=== PATIENT | female | born 1970 | race Caucasian/White ===

== ENCOUNTER → 2020-07-11 09:17 | Outpatient (CLI) | payer OTHER, SELFPAY ==
--- NOTE | ~2020-07-11 | DEXA_ITS ---
Bone Density Report Name: Lovely Longoria Age: 50 Sex: Female Ethnicity: White Date of : 1970 Indication: postmenopausal; screening for osteoporosis; height loss; history of glucocorticoids; prior fracture; hysterectomy; Referring Provider: XIAO ANGLIN Study: Bone densitometry was performed. Exam Date: July 11, 2020 Accession number: [id number] Bone Density: Region BMD T-score Z-score Classification AP Spine (L1-L4) 0.966 -0.7 0.1 Normal Femoral Neck (Left) 0.740 -1.0 -0.1 Normal Total Hip (Left) 0.940 0.0 0.5 Normal Femoral Neck (Right) 0.669 -1.6 -0.7 Osteopenia Total Hip (Right) 0.859 -0.7 -0.1 Normal Total Hip Mean 0.900 -0.4 0.2 Normal World Health Organization criteria for BMD impression classify patients as: Normal (T-score at or above -1.0), Osteopenia (T-score between -1.0 and -2.5), or Osteoporosis (T-score at or below -2.5). 10-year Fracture Risk(1): Major Osteoporotic Fracture 15% Hip Fracture 1.6% Reported Risk Factors: [place] (), Neck BMD=0.669, BMI=37.3, previous fracture, glucocorticoids (1) FRAX(R) Version 3.08. Fracture probability calculated for an untreated patient. Fracture probability may be lower if the patient has received treatment. Clinical Information Provided by Patient: Has had a low trauma fracture Has taken Glucocorticoids Has the following medical conditions: Hysterectomy, stage 3 kidney disease, chemo in the past due to kidney disease Patient maximum height was 67 Menopause Age: 25 Drinks caffeinated beverages Onset of menses at age 9 Number of children 0 Impression: The patient has low bone mass, based on the Right Femoral Neck T-score. The patient has an estimated ten-year risk of hip fracture of 1.6% and an estimated ten-year risk of major fracture of 15%, based on the WHO FRAX algorithm. The patient has risk factors, including: previous fracture, history of glucocorticoid therapy. Discussion: BONE DENSITY IS LOW AT ONE OR MORE SKELETAL SITES. This patient's lowest T-score is low at one or more skeletal sites. It meets the World Health Organization's (WHO) criteria for ?low bone mass? (T-score between -1.0 and -2.5). The patient's 10-year risk of fracture as calculated by FRAX is less than the threshold where pharmacological therapy is recommended by the National Osteoporosis Foundation (NOF). However, all treatment decisions require clinical judgment and consideration of individual patient factors, including patient preferences, comorbidities, previous drug use, risk factors not captured in the FRAX model (e.g., frailty, falls, vitamin D deficiency, increased bone turnover, interval significant decline in bone density) and possible under or overestimation of fracture risk by FRAX. The patient should follow a healthful lifestyle (good nu
== END ==
DX: M85.88 Other specified disorders of bone density and structure, other site (principal)
CPT/HCPCS: 77080

== ENCOUNTER 2020-08-27 16:08 | Emergency (ER) | payer OTHER, SELFPAY ==
--- NOTE | 2020-08-27 16:13 | ED.GENADULT ---
HPI - General Adult General Chief complaint: Skin/Abscess/Foreign Body Stated complaint: rash Time Seen by Provider: 08/27/20 16:15 Source: patient Mode of arrival: ambulatory Limitations: no limitations History of Present Illness HPI narrative: 50-year-old female patient presents to the [facility] with complaints of hives that started this morning. 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 Patient states that while she was out walking her dog she suddenly had a lot of itching to her bilateral lower extremities as well as her bilateral breasts. Patient states when she got back home she did take 50 mg of Benadryl and went to bed. Patient states about half an hour after she took the Benadryl she did notice some chest tightness but ignored it with went ahead and went to sleep. Patient states that when she woke up from her sleep today she continued to have the chest tightness but only rates it about a 2 out of 10. Patient states that she noticed that the hives to her bilateral breast in her lower extremities were improved but then shortly after waking up started getting hives to bilateral upper extremities with itching. Denies any shortness of breath. Denies any fevers, body aches or chills. Patient does have an autoimmune kidney disorder in which she recently just finished some Bactrim. Patient does also have history of hypertension which she has not yet taken her medicine for. 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 Related Data Home Medications Medication Instructions Recorded Confirmed atenolol 50 mg PO DAILY 08/27/20 08/27/20 hydrochlorothiazide 25 mg PO DAILY 08/27/20 08/27/20 levothyroxine 100 mcg PO DAILY 08/27/20 08/27/20 Allergies Allergy/AdvReac Type Severity Reaction Status Date / Time GISELL Inhibitors Allergy Unknown Verified 08/27/20 16:33 mycophenolate mofetil Allergy Unknown Verified 08/27/20 16:33 Penicillins Allergy Unknown Verified 08/27/20 16:33 Sulfa (Sulfonamide Allergy Unknown Verified 08/27/20 16:33 Antibiotics) chlorthalidone Allergy Unknown Verified 08/27/20 16:33 Review of Systems Review of Systems: Narrative: CONSTITUTIONAL: Denies fever, chills, or sweats. EYES: Denies visual changes, redness, or discharge. ENT: Denies rhinorrhea, congestion, sore throat, or otalgia. CARDIOVASCULAR: Positive midsternal chest tightness, denies palpitations, or edema. RESPIRATORY: Denies cough or dyspnea. GASTROINTESTINAL: Denies abdominal pain, nausea, vomiting, or diarrhea. GENITOURINARY: Denies dysuria or hematuria. SKIN: Positive rash with itching to bilateral lower extremities, bilateral upper extremities, bilateral breast.. MUSCULOSKELETAL: Denies back pain, joint pain, or myalgia. NEUROLOGIC: Denies headache, numbness, or weakness. PSYCHIATRIC: Denies anxiety or depression. [facility] Past Medical History Medical History (Updated 08/27/20 @ 16:53 by KENIA Lopez) Genitourinary disorder Autoimmune IgA nephropathy Hypertension Hypothyroidism Surgical History Surgical History (Updated 08/27/20 @ 16:16 by KENIA Lopez) H/O: hysterectomy Social History Social History Gender identity (if verbalized by the patient): Female Comments At the time of my signature I agree with nursing past medical history, surgical, social, and family history. There is no relevant family history pertinent to the presenting complaint. Exam Narrative: Exam Narrative: GENERAL: Well-appearing, well-nourished, and in no acute distress. HEAD: Normocephalic, atraumatic. EYES: PERRLA and EOMI. ENT: Nares clear, no rhinorrhea or epistaxis. Mucous membranes moist. Posterior pharynx with no erythema, tonsillectomy, exudates or lesions present. NECK: Supple. No lymphadenopathy CHEST: Clear to auscultation. No respirator
[2020-08-27 16:24] VITALS: BP 136/105; PULSE 78; RESP 16; TEMP 36.7; O2SAT 99
--- NOTE | 2020-08-27 16:32 | ECG_ITS ---
Measurements Intervals [place] Rate: 62 P: 36 VT: 158 QRS: -21 QRSD: 94 T: 26 QT: 365 QTc: 373 Interpretive Statements SINUS RHYTHM DELAYED PRECORDIAL R/S TRANSITION VOLTAGE CRITERIA FOR LVH MINIMAL Q WAVES- HIGH LATERAL LEADS BASELINE ARTIFACT- I, II, III, AVR, AVL, AVF BORDERLINE ECG Electronically Signed On 08-27-2020 19:18:03 SPRING TACKER by Davidson Ocampo D.O.
[2020-08-27 16:33] VITALS: BP 136/105; PULSE 78; RESP 16; TEMP 36.7; O2SAT 99
--- NOTE | 2020-08-27 16:35 | PC.NURSE ---
1623 - Pt states she has not taken her daily medications.
== END 2020-08-27 16:45 | disposition short-term general hospital (02) ==
LOC: EXPCOLL 16:18
PROVIDERS: Emergency Provider Nurse Practitioner Family
DX: R07.89 Other chest pain (principal); L50.9 Urticaria, unspecified; N02.8 Recurrent and persistent hematuria with other morphologic changes; I10 Essential (primary) hypertension; E03.9 Hypothyroidism, unspecified
CPT/HCPCS: 93005; 99213; G0463

== ENCOUNTER 2020-08-27 17:00 | Emergency (ER) | payer OTHER, SELFPAY ==
--- NOTE | ~2020-08-27 | XR_ITS ---
EXAMINATION: XR chest 2V DATE: 08/27/2020 17:16 INDICATION: Chest tightness. TECHNIQUE: Frontal and lateral views of the chest were obtained. COMPARISON: None. FINDINGS: The chest demonstrates clear lungs without pneumonia, pleural effusion, or pneumothorax. Th e heart size is normal. IMPRESSION: 1. No acute cardiopulmonary disease. Reviewed, dictated and finalized at location A. L JUDGE
--- NOTE | 2020-08-27 17:02 | ECG_ITS ---
Measurements Intervals [place] Rate: 73 P: 37 IA: 164 QRS: -25 QRSD: 89 T: 36 QT: 366 QTc: 406 Interpretive Statements SINUS RHYTHM WITH SINUS ARRHYTHMIA DELAYED PRECORDIAL R/S TRANSITION VOLTAGE CRITERIA FOR LVH MINIMAL Q WAVES- HIGH LATERAL LEADS BASELINE ARTIFACT- II, III, AVF BORDERLINE ECG Electronically Signed On 08-27-2020 19:17:26 [employer] INSTALLER by Davidson Ocampo D.O.
--- NOTE | 2020-08-27 17:12 | ED.CHESTPAIN ---
HPI - Chest Pain General Chief Complaint: Recheck/Abnormal Lab/Rx Stated Complaint: Abnormal E[facility] from [facility] Time Seen by Provider: 08/27/20 17:12 Source: patient Mode of arrival: ambulatory Limitations: no limitations History of Present Illness HPI narrative: Patient is a 50-year-old female with a history of hypertension, hypothyroidism who presents from a local urgent care for evaluation of chest pain. Patient reportedly has had chest tightness throughout the day today, initially beginning this morning while the patient was at rest. Patient states that she went to walk her dog this morning after being outside, she suddenly noticed urticaria and itching, tingling that began on her lower extremities and then spread to her chest and abdomen. Patient states that she has a history of numerous urticarial reactions in the past, sometimes these are triggered by specific medications, patient denies any current antibiotic therapy. She did states she finished a prescription for Macrobid over 48 hours ago. Patient denies any dysuria or hematuria. No fever or chills. No current chest pain or shortness of breath. Patient states that the pain was really described as a tightness, no radiation to the jaw, shoulder, back or flanks. No associated shortness of breath, nausea or vomiting. Patient denies history of PR. Patient states that she was not walking when the pain began, she was already at home. Patient states her urticaria is mostly resolved aside from a few scattered hives to the left forearm. Patient states she took Benadryl and Claritin which greatly improved to the urticaria. Related Data Home Medications Medication Instructions Recorded Confirmed atenolol 50 mg PO DAILY 08/27/20 08/27/20 hydrochlorothiazide 25 mg PO DAILY 08/27/20 08/27/20 levothyroxine 100 mcg PO DAILY 08/27/20 08/27/20 Allergies Allergy/AdvReac Type Severity Reaction Status Date / Time GISELL Inhibitors Allergy Unknown Swelling Verified 08/27/20 17:32 of Lip/Tongue/Throat mycophenolate mofetil Allergy Unknown Itching Verified 08/27/20 17:32 Penicillins Allergy Unknown Wheezing Verified 08/27/20 17:32 Sulfa (Sulfonamide Allergy Unknown Rash Verified 08/27/20 17:32 Antibiotics) chlorthalidone Allergy Swelling Verified 08/27/20 17:32 of Lip/Tongue/Throat Review of Systems Review of Systems: Narrative: CONSTITUTIONAL: Denies fever, chills, or sweats. EYES: Denies visual changes, redness, or discharge. ENT: Denies rhinorrhea, congestion, sore throat, or otalgia. CARDIOVASCULAR: Denies current chest tightness RESPIRATORY: Denies cough or dyspnea. GASTROINTESTINAL: Denies abdominal pain, nausea, vomiting, or diarrhea. GENITOURINARY: Denies dysuria or hematuria. SKIN: Reports mostly resolved urticarial rash, resolved itching MUSCULOSKELETAL: Denies back pain, joint pain, or myalgia. NEUROLOGIC: Denies headache, numbness, or weakness. [facility] Past Medical History Medical History Genitourinary disorder Autoimmune IgA nephropathy Hypertension Hypothyroidism Surgical History Surgical History (Updated 08/27/20 @ 16:16 by KENIA Lopez) H/O: hysterectomy Social History Social History Gender identity (if verbalized by the patient): Female Exam Narrative: Exam Narrative: GENERAL: Awake, alert, conversant HEAD: Normocephalic, atraumatic. EYES: PERRLA and EOMI. ENT: Nares clear, no rhinorrhea or epistaxis. Mucous membranes moist. NECK: Supple. CHEST: No respiratory distress, breathing even and non labored, no chest wall tenderness HEART: Regular rate, sinus rhythm ABDOMEN:Non distended, non tender EXTREMITIES: Normal range of motion. No edema. No calf tenderness. SKIN: Warm, dry, three urticaria located left forearm, no other urticaria on evaluation NEURO:No focal deficits. Alert and oriented x3 Course Vital
[2020-08-27 17:23] VITALS: BP 160/98; PULSE 72; RESP 16; O2SAT 99
[2020-08-27 17:47] LABS: Basophils Absolute Auto 0.1 K/mm3 (0.0-0.1); Basophils Percent Auto 0.8 % (0.2-1.2); Eosinophils Absolute Auto 0.3 K/mm3 (0-0.3); Eosinophils Percent Auto 2.6 % (0-4.4); Hematocrit 41.9 % (37.0-47.0); Hemoglobin 13.1 g/dL (12.0-15.0); Immature Granulocyte Absolute 0.03 K/mm3 (0.00-0.031); Immature Granulocyte Percent A 0.3 % (0-0.5); Lymphocytes Absolute Auto 1.71 K/mm3 (0.9-3.2); Lymphocytes Percent Auto 16.6 % (18.3-44.2); Mean Corpuscular HGB Conc 31.3 g/dl (32-36); Mean Corpuscular Hemoglobin 25.6 pg (26-34); Mean Platelet Volume 9.7 fl (7.4-10.4); Monocytes Absolute Auto 0.8 K/mm3 (0.1-0.6); Monocytes Percent Auto 7.3 % (2.6-8.5); Neutrophils Absolute Auto 7.4 K/mm3 (1.3-6.7); Neutrophils Percent Auto 72.4 % (45.5-73.1); Platelet Count Result 297 k/mm3 (150-375); Red Blood Count 5.11 M/mm3 (4.2-5.4); Red Cell Distribution Width 15.9 % (11.5-14.5); White Blood Count 10.3 K/mm3 (4.5-10.0)
[2020-08-27 17:56] LABS: Alanine Aminotransferase 14 U/L (4-35); Albumin Level 4.2 g/dL (3.5-5.1); Alkaline Phosphatase 64 U/L (38-126); Anion Gap 8 mmol/L (8-16); Aspartate Amino Transferase 24 U/L (14-36); Bilirubin,Total 0.3 mg/dL (0.2-1.3); Blood Urea Nitrogen 30 mg/dL (7-17); Calcium 9.3 mg/dL (8.4-10.2); Carbon Dioxide 31 mmol/L (22-30); Chloride 100 mmol/L (98-107); Estimated Glomerular Filt Rate 43; Glucose 125 mg/dL (65-105); INR 0.9; Potassium 3.6 mmol/L (3.4-5.0); Prothrombin Time 12.4 Seconds (11.1-14.7); Sodium 139 mmol/L (137-145)
[2020-08-27 17:57] LABS: Partial Thromboplastin Time 30.1 SECONDS (22.3-36.8)
[2020-08-27 18:08] LABS: Troponin I < 0.012 ng/mL (0.000-0.034)
[2020-08-27] MEDS: predniSONE 20 MG TABLET 40 MG PO (19:09)
[2020-08-27] MEDS: diphenhydrAMINE HCl CAP 25 MG CAPSULE PO (19:09)
[2020-08-27] MEDS: ASPIRIN 81 MG CHEWABLE TABLET 324 MG PO (19:09)
[2020-08-27 20:11] VITALS: BP 138/76; PULSE 72; RESP 18; O2SAT 98
== END 2020-08-27 20:29 | disposition home or self-care (01) ==
PROVIDERS: Emergency Provider Emergency Medicine; PCP Internal Medicine
DX: R07.89 Other chest pain (principal); T78.40XA Allergy, unspecified, initial encounter; I10 Essential (primary) hypertension; E03.9 Hypothyroidism, unspecified
CPT/HCPCS: 36415; 71046; 80053; 84443; 84484; 85025; 85610; 85730; 93005; 99284; A9270; J7512

== ENCOUNTER 2021-03-19 02:38 | Emergency (ER) | payer OTHER, SELFPAY ==
--- NOTE | ~2021-03-19 | XR_ITS ---
EXAMINATION: XR chest 2V DATE: 03/19/2021 03:14 INDICATION: Fever TECHNIQUE: PA and lateral views of the chest are obtained. COMPARISON: 08/27/2020 FINDINGS: The lungs are free of acute opacities. There is no pleural effusion or pneumothorax. The ca rdiomediastinal silhouette is normal. There is mild thoracic spondylosis. A right internal jugular Po rt-A-Cath ends with its tip in the distal superior vena cava. IMPRESSION: 1. No acute cardiopulmonary abnormality. Reviewed, dictated and finalized at location A.
[2021-03-19 02:42] VITALS: BP 131/72; PULSE 89; RESP 16; TEMP 36.9; O2SAT 99
--- NOTE | 2021-03-19 03:09 | ED.FEVER ---
HPI - Fever General Chief Complaint: Fever Stated Complaint: fever since 1400 sent by provider Time Seen by Provider: 03/19/21 03:00 Source: patient Mode of arrival: ambulatory Limitations: no limitations History of Present Illness HPI Narrative: Patient is a 50-year-old female complaining of fever, 101.6, started today. Patient does complain of low back pain, same symptoms that she had a urinary tract infection approximately 3 weeks ago. Patient was advised by her oncologist to go to the emergency room for further evaluation and treatment. Patient currently receiving chemotherapy due to stage IV colon CA with mets. Patient denies any headache, chest pain, shortness of breath, abdominal pain, nausea, vomiting, diarrhea or urinary symptoms. Related Data Home Medications Medication Instructions Recorded Confirmed atenolol 50 mg PO DAILY 08/27/20 08/27/20 hydrochlorothiazide 25 mg PO DAILY 08/27/20 08/27/20 levothyroxine 100 mcg PO DAILY 08/27/20 08/27/20 Allergies Allergy/AdvReac Type Severity Reaction Status Date / Time GISELL Inhibitors Allergy Unknown Swelling Verified 08/27/20 17:32 of Lip/Tongue/Throat mycophenolate mofetil Allergy Unknown Itching Verified 08/27/20 17:32 Penicillins Allergy Unknown Wheezing Verified 08/27/20 17:32 Sulfa (Sulfonamide Allergy Unknown Rash Verified 08/27/20 17:32 Antibiotics) chlorthalidone Allergy Swelling Verified 08/27/20 17:32 of Lip/Tongue/Throat nitrofurantoin Allergy Rash Verified 03/19/21 02:48 [From Macrobid] oseltamivir [From Tamiflu] Allergy Rash Verified 03/19/21 02:48 Review of Systems Review of Systems: All systems reviewed & are unremarkable except as noted in HPI and below Constitutional: Constitutional: Denies body ache(s), Denies chills, Denies excessive sweating, Denies fatigue, Denies headache(s), Denies lethargy, Denies malaise, Denies weakness and Denies weight loss Eyes: Eyes: Denies blurry vision, Denies change in vision and Denies loss of vision ENT: Denies dizziness, Denies ear discharge, Denies headache(s), Denies lip swelling, Denies epistaxis, Denies nasal congestion, Denies neck pain, Denies throat swelling and Denies tongue swelling Cardiovascular: Cardiovascular: Denies chest pain, Denies chest pain at rest, Denies chest pain with activity, Denies diaphoresis, Denies rapid heart rate, Denies edema, Denies irregular heart rhythm, Denies lightheadedness, Denies palpitations, Denies dyspnea and Denies dyspnea on exertion Respiratory: Respiratory: Denies chest congestion, Denies cough, Denies hemoptysis, Denies dyspnea and Denies dyspnea on exertion Gastrointestinal: Gastrointestinal: Denies abdominal pain, Denies melena, Denies hematochezia, Denies diarrhea, Denies nausea, Denies vomiting and Denies hematemesis Musculoskeletal: Musculoskeletal: Denies abnormal gait, Denies deformity, Denies joint swelling, Denies limited range of motion, Denies neck pain and Denies numbness Neurologic: Denies Abnormal speech present, Denies abnormal gait, Denies confusion, Denies dizziness, Denies headache(s), Denies focal weakness, Denies loss of vision, Denies numbness, Denies Other visual disturbances, Denies Sensory deficit (Neuro) and Denies weakness Psychiatric: Psychiatric: Denies confusion, Denies depression, Denies auditory hallucinations, Denies homicidal ideation and Denies suicidal ideation Endocrine: Endocrine: Denies cold intolerance, Denies excessive sweating, Denies fatigue, Denies heat intolerance and Denies palpitations Hematologic/Lymphatic: Hematologic/Lymphatic: Denies easy bleeding and Denies easy bruising Allergic/Immunologic: Allergic/Immunologic: Denies lip swelling, Denies throat swelling and Denies tongue swelling PMFSH Past Medical History Medical History Genitourinary disorder Autoimmune IgA nephropathy Hypertension Hypothyroidism Surgical History Surgica
[2021-03-19 03:29] LABS: Basophils Absolute Auto 0.1 K/mm3 (0.0-0.1); Basophils Percent Auto 1.2 % (0.2-1.2); Eosinophils Absolute Auto 0.1 K/mm3 (0-0.3); Eosinophils Percent Auto 1.1 % (0-4.4); Hematocrit 33.4 % (37.0-47.0); Hemoglobin 9.8 g/dL (12.0-15.0); Immature Granulocyte Absolute 0.07 K/mm3 (0.00-0.031); Immature Granulocyte Percent A 0.8 % (0-0.5); Lymphocytes Absolute Auto 0.63 K/mm3 (0.9-3.2); Lymphocytes Percent Auto 7.4 % (18.3-44.2); Mean Corpuscular HGB Conc 29.3 g/dl (32-36); Mean Corpuscular Hemoglobin 24.7 pg (26-34); Mean Corpuscular Volume 84.1 fl (80-100); Mean Platelet Volume 10.1 fl (7.4-10.4); Monocytes Percent Auto 11.2 % (2.6-8.5); Neutrophils Absolute Auto 6.7 K/mm3 (1.3-6.7); Neutrophils Percent Auto 78.3 % (45.5-73.1); Platelet Count Result 195 k/mm3 (150-375); Red Blood Count 3.97 M/mm3 (4.2-5.4); Red Cell Distribution Width 20.4 % (11.5-14.5); White Blood Count 8.5 K/mm3 (4.5-10.0)
[2021-03-19] MEDS: SODIUM CHLORIDE 0.9% IV 1,000 ML 999 ML IV CONT (03:31)
[2021-03-19 03:38] LABS: Lactic Acid Reflex 1.4 mmol/L (0.7-2.1)
[2021-03-19 03:40] LABS: Partial Thromboplastin Time 36.5 SECONDS (22.3-36.8)
[2021-03-19 03:42] LABS: Alanine Aminotransferase 11 U/L (4-35); Albumin Level 3.6 g/dL (3.5-5.1); Alkaline Phosphatase 99 U/L (38-126); Anion Gap 7 mmol/L (8-16); Aspartate Amino Transferase 34 U/L (14-36); Bilirubin,Total 0.5 mg/dL (0.2-1.3); Blood Urea Nitrogen 12 mg/dL (7-17); CRP 5.5 mg/dL (<1.0); Calcium 8.3 mg/dL (8.4-10.2); Carbon Dioxide 26 mmol/L (22-30); Chloride 106 mmol/L (98-107); Estimated CRCL calculation 63 ml/min; Estimated Glomerular Filt Rate 52; Glucose 107 mg/dL (65-105); Potassium 3.3 mmol/L (3.4-5.0); Sodium 139 mmol/L (137-145)
[2021-03-19 03:54] LABS: Anisocytosis 1+ (NORMAL); Platelet Estimate Adequate (Adequate)
[2021-03-19 03:56] LABS: Add Urine Microscopic? YES; Appearance Urine Clear (Clear); Bilirubin Urine Negative (Negative); Blood Urine Negative (Negative); Color Urine Yellow (Yellow); Glucose Urine UA Negative (Negative); Ketones Urine Negative (Negative); Leukocyte Esterase Ur Negative LEU/UL (Negative); Mucus Urine Rare /lpf; Nitrate Urine Negative (Negative); Protein Urine 2+ mg/dL (Negative); RBC Urine 0-2 /hpf (0-2); Specific Grav Ur 1.013 (1.001-1.035); Squamous Epithelial Cell Urine Few /hpf (Few); Urobilinogen Urine Negative mg/dL (<2.0); WBC Urine 0-3 /hpf
[2021-03-19] MEDS: POTASSIUM CHLORIDE 20 MEQ PACKET (FOR LIQUID) PO (04:40)
[2021-03-19 05:15] VITALS: BP 126/71; PULSE 80; RESP 16; O2SAT 99
== END 2021-03-19 05:15 | disposition home or self-care (01) ==
PROVIDERS: Emergency Provider Emergency Medicine; PCP Internal Medicine
DX: R50.9 Fever, unspecified (principal); I10 Essential (primary) hypertension; E03.9 Hypothyroidism, unspecified
CPT/HCPCS: 36415; 71046; 80053; 81001; 83605; 85025; 85610; 85730; 86140; 87040; 96365; 99284; A9270; J0696; J7030

== ENCOUNTER 2021-04-11 12:52 | Emergency (ER) | payer OTHER, SELFPAY ==
--- NOTE | ~2021-04-11 | XR_ITS ---
XR chest 1V portable DATE: 04/11/2021 16:58 INDICATION: Fever. Hypertension. TECHNIQUE: Portable upright AP chest on 04/11/2021 at 1657 hours COMPARISON: 03/19/2021 PA and lateral chest FINDINGS: Right Port-A-Cath catheter tip overlies the superior cavoatrial junction. Heart size within normal range. No hilar or mediastinal enlargement. No pulmonary infiltrate or conso lidation, pleural effusion or pulmonary vascular congestion or pneumothorax. Levoscoliosis of the thoracolumbar spine. Osteopenia. IMPRESSION: Right Port-A-Cath catheter tip at superior cavoatrial junction area No active pulmonary disease Reviewed, dictated and finalized at location A.
[2021-04-11 13:56] VITALS: BP 124/69; PULSE 80; RESP 18; TEMP 36.3; O2SAT 99
[2021-04-11 16:58] LABS: Add Urine Microscopic? YES; Appearance Urine Clear (Clear); Bilirubin Urine Negative (Negative); Blood Urine Negative (Negative); Color Urine Yellow (Yellow); Glucose Urine UA Negative (Negative); Ketones Urine Negative (Negative); Leukocyte Esterase Ur Negative LEU/UL (Negative); Mucus Urine Rare /lpf; Nitrate Urine Negative (Negative); Protein Urine 2+ mg/dL (Negative); RBC Urine 0-2 /hpf (0-2); Specific Grav Ur 1.015 (1.001-1.035); Squamous Epithelial Cell Urine Rare /hpf (Few); Uric Acid Crystals Urine Present /hpf; Urobilinogen Urine Negative mg/dL (<2.0); WBC Urine 0-3 /hpf
[2021-04-11 17:07] VITALS: BP 129/56; PULSE 78; RESP 15; O2SAT 100
[2021-04-11 17:15] LABS: Basophils Percent Auto 0.1 % (0.2-1.2); Eosinophils Percent Auto 0.3 % (0-4.4); Hematocrit 31.1 % (37.0-47.0); Hemoglobin 9.1 g/dL (12.0-15.0); Immature Granulocyte Absolute 0.16 K/mm3 (0.00-0.031); Immature Granulocyte Percent A 2.1 % (0-0.5); Lymphocytes Absolute Auto 0.57 K/mm3 (0.9-3.2); Lymphocytes Percent Auto 7.3 % (18.3-44.2); Mean Corpuscular HGB Conc 29.3 g/dl (32-36); Mean Corpuscular Hemoglobin 24.9 pg (26-34); Mean Corpuscular Volume 85.2 fl (80-100); Monocytes Absolute Auto 0.8 K/mm3 (0.1-0.6); Monocytes Percent Auto 9.7 % (2.6-8.5); Neutrophils Absolute Auto 6.3 K/mm3 (1.3-6.7); Neutrophils Percent Auto 80.5 % (45.5-73.1); Platelet Count Result 188 k/mm3 (150-375); Red Blood Count 3.65 M/mm3 (4.2-5.4); Red Cell Distribution Width 20.9 % (11.5-14.5); White Blood Count 7.8 K/mm3 (4.5-10.0)
[2021-04-11 17:26] LABS: Lactic Acid Reflex 1.1 mmol/L (0.7-2.1)
[2021-04-11 17:27] LABS: Alanine Aminotransferase 9 U/L (4-35); Albumin Level 3.7 g/dL (3.5-5.1); Alkaline Phosphatase 90 U/L (38-126); Anion Gap 7 mmol/L (8-16); Aspartate Amino Transferase 23 U/L (14-36); Bilirubin,Total 0.8 mg/dL (0.2-1.3); Blood Urea Nitrogen 19 mg/dL (7-17); Calcium 8.9 mg/dL (8.4-10.2); Carbon Dioxide 29 mmol/L (22-30); Chloride 101 mmol/L (98-107); Estimated CRCL calculation 68 ml/min; Estimated Glomerular Filt Rate 58; Glucose 116 mg/dL (65-105); Lipase 166 U/L (23-300); Potassium 3.7 mmol/L (3.4-5.0); Sodium 137 mmol/L (137-145)
[2021-04-11 17:35] LABS: Hypochromasia 1+ (NORMAL); Platelet Estimate Adequate (Adequate)
--- NOTE | 2021-04-11 17:50 | ED.FEVER ---
HPI - Fever General Chief Complaint: Fever Stated Complaint: fever, oncology pt Time Seen by Provider: 04/11/21 16:43 Source: patient Mode of arrival: ambulatory Limitations: no limitations History of Present Illness HPI Narrative: This is a 51-year-old female that presents to the emergency department for fever this morning. Reports she is a colon cancer patient. Last received chemotherapy on Wednesday. Reports yesterday at work she noted that she had the chills. Today when she got home she had a fever up to 102. She took a gram of Tylenol. Otherwise has no complaints. Denies sore throat, congestion, cough, abdominal pain, vomiting, or dysuria. Related Data Home Medications Medication Instructions Recorded Confirmed atenolol 50 mg PO DAILY 08/27/20 08/27/20 hydrochlorothiazide 25 mg PO DAILY 08/27/20 08/27/20 levothyroxine 100 mcg PO DAILY 08/27/20 08/27/20 Allergies Allergy/AdvReac Type Severity Reaction Status Date / Time GISELL Inhibitors Allergy Unknown Swelling Verified 04/11/21 14:01 of Lip/Tongue/Throat mycophenolate mofetil Allergy Unknown Itching Verified 04/11/21 14:01 Penicillins Allergy Unknown Wheezing Verified 04/11/21 14:01 Sulfa (Sulfonamide Allergy Unknown Rash Verified 04/11/21 14:01 Antibiotics) chlorthalidone Allergy Swelling Verified 04/11/21 14:01 of Lip/Tongue/Throat nitrofurantoin Allergy Rash Verified 04/11/21 14:01 [From Macrobid] oseltamivir [From Tamiflu] Allergy Rash Verified 04/11/21 14:01 aprepitant [From Emend] AdvReac Nausea and Verified 04/11/21 14:02 Vomiting fosaprepitant [From Emend] AdvReac Nausea and Verified 04/11/21 14:01 Vomiting Review of Systems Review of Systems: Narrative: CONSTITUTIONAL: Reports fever, chills ENT: Denies rhinorrhea, congestion, sore throat RESPIRATORY: Denies cough or dyspnea. GASTROINTESTINAL: Denies abdominal pain, nausea, vomiting GENITOURINARY: Denies dysuria All systems reviewed & are unremarkable except as noted in HPI and below PMFSH Past Medical History Medical History (Updated 04/11/21 @ 19:57 by Trixie Gaitan PA-C) Genitourinary disorder Autoimmune IgA nephropathy History of colon cancer Hypertension Hypothyroidism Surgical History Surgical History H/O: hysterectomy Social History Social History Gender identity (if verbalized by the patient): Female Exam Narrative: Exam Narrative: GENERAL: Well-appearing, well-nourished, and in no acute distress. HEAD: Normocephalic, atraumatic. EYES: EOMI. ENT: Nares clear, no rhinorrhea or epistaxis. Mucous membranes moist. Oropharynx without tonsillar hypertrophy exudate or other lesions. Bilateral TMs pearly calzada non-bulging NECK: Supple. No adenopathy or masses. CHEST: Clear to auscultation. No respiratory distress. No wheezes rales or rhonchi HEART: Regular rate and rhythm. No murmur heard. Normal peripheral pulses. ABDOMEN: Soft, nontender, nondistended, normal active bowel sounds. EXTREMITIES: Normal range of motion. No edema. SKIN: Warm, dry, no rash. NEURO: No focal deficits. Alert and oriented x3. PSYCH: Normal mood and affect Course Consultations Consultation #1: Spoke with Dr. Siegel, patient's oncologist about patient and work-up. Reports if there are no acute findings on work-up, fever is likely due to tumor fever. She is to follow-up at her scheduled appointment. Date: 04/11/21 Time: 19:30 Vital Signs Vital signs: Vital Signs Temperature 97.4 F L 04/11/21 13:56 Pulse Rate 80 04/11/21 13:56 Respiratory Rate 18 04/11/21 13:56 Blood Pressure 124/69 04/11/21 13:56 Pulse Oximetry 99 04/11/21 13:56 Temperature 97.4 F L 04/11/21 13:56 Pulse Rate 78 04/11/21 17:07 Respiratory Rate 15 04/11/21 17:07 Blood Pressure 129/56 L 04/11/21 17:07 Pulse Oximetry 100 04/11/21 17:07 MDM - Fever M
[2021-04-11 20:48] VITALS: BP 126/58; PULSE 81; RESP 20; O2SAT 97
== END 2021-04-11 20:53 | disposition home or self-care (01) ==
PROVIDERS: Physician Assistant; Emergency Provider Emergency Medicine; PCP Internal Medicine
DX: R50.9 Fever, unspecified (principal); I10 Essential (primary) hypertension; E03.9 Hypothyroidism, unspecified
CPT/HCPCS: 36415; 71045; 80053; 81001; 83605; 83690; 85025; 99283

== ENCOUNTER 2021-07-13 19:09 | Emergency (ER) | payer OTHER, SELFPAY ==
--- NOTE | ~2021-07-13 | CT_ITS ---
EXAMINATION: CT brain wo con DATE: 07/13/2021 20:14 INDICATION: Generalized paresis, weakness TECHNIQUE: Computed tomography (CT) of the head was performed without intravenous contrast. The mA wa s adjusted according to patient size. Iterative reconstruction technique was employed. Exam dose: 60 5.33 mGy-cm total exam DLP. COMPARISON: None FINDINGS: No intracranial mass lesion or hemorrhage or cerebrovascular accident is evident. No midlin e shift or mass effect effect. Normal ventricular size. No subdural or epidural hematoma is detected. There is nonspecific diminished attenuation of the cerebral white matter, likely due to chronic small vessel ischemic changes. No fracture or bone destruction of the cranial vault. The mastoid air cells and included paranasal si nuses are normally developed and aerated. IMPRESSION: No acute intracranial finding Reviewed, dictated and finalized at [facility] Reviewed, dictated and finalized at [facility].
--- NOTE | ~2021-07-13 | XR_ITS ---
XR chest 1V portable DATE: 07/13/2021 20:00 INDICATION: Altered level of consciousness, weakness. Stage IV colon cancer. Hypertension. TECHNIQUE: Portable AP chest on 07/13/2021 at 1952 hours COMPARISON: 04/11/2021 portable AP chest at 1657 hours FINDINGS: Right Port-A-Cath catheter tip is situated near the superior cavoatrial junction. Heart siz e is not optimally evaluated on AP projection because of magnification but is likely within normal ra nge. No pulmonary infiltrate or consolidation, pleural effusion or pulmonary vascular congestion or pneumo thorax is detected. IMPRESSION: No active disease or significant change since 04/11/2021 Right Port-A-Cath Reviewed, dictated and finalized at [facility].
[2021-07-13 19:24] VITALS: BP 119/72; PULSE 103; RESP 18; TEMP 37.1; O2SAT 99
--- NOTE | 2021-07-13 19:40 | ECG_ITS ---
Measurements Intervals [place] Rate: 89 P: 23 AK: 145 QRS: -20 QRSD: 93 T: 21 QT: 348 QTc: 426 Interpretive Statements SINUS RHYTHM LEFT VENTRICULAR HYPERTROPHY AND ST-T CHANGE BORDERLINE R WAVE PROGRESSION, ANTERIOR LEADS MINIMAL Q WAVES- HIGH LATERAL LEADS BORDERLINE ECG Electronically Signed On 07-14-2021 6:02:34 CDT by Davidson Ocampo D.O.
--- NOTE | 2021-07-13 20:48 | ED.GENADULT ---
HPI - General Adult General Chief complaint: Weakness Stated complaint: weakness, loc, lethargic, slow to respond Time Seen by Provider: 07/13/21 19:24 History of Present Illness HPI narrative: Patient is a 51-year-old female who presents the emergency department with chief complaint of generalized weakness. Patient has history of metastatic cancer and is being treated at [facility]. The patient over the last 24 hours has been getting progressively weaker to the point where she attempted to walk up the stairs last night and was unable to pick herself up she took about 3 hours to get to her recliner and laid in the recliner all day the patient was unable to ambulate due to the weakness denies chest pain denies shortness of breath the patient reports that she has had bruising from several falls and has a bruise on her left forehead. 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 Related Data Home Medications Medication Instructions Recorded Confirmed atenolol 50 mg PO DAILY 08/27/20 08/27/20 hydrochlorothiazide 25 mg PO DAILY 08/27/20 08/27/20 levothyroxine 100 mcg PO DAILY 08/27/20 08/27/20 Allergies Allergy/AdvReac Type Severity Reaction Status Date / Time GISELL Inhibitors Allergy Unknown Swelling Verified 04/11/21 14:01 of Lip/Tongue/Throat mycophenolate mofetil Allergy Unknown Itching Verified 04/11/21 14:01 Penicillins Allergy Unknown Wheezing Verified 04/11/21 14:01 Sulfa (Sulfonamide Allergy Unknown Rash Verified 04/11/21 14:01 Antibiotics) chlorthalidone Allergy Swelling Verified 04/11/21 14:01 of Lip/Tongue/Throat nitrofurantoin Allergy Rash Verified 04/11/21 14:01 [From Macrobid] oseltamivir [From Tamiflu] Allergy Rash Verified 04/11/21 14:01 aprepitant [From Emend] AdvReac Nausea and Verified 04/11/21 14:02 Vomiting fosaprepitant [From Emend] AdvReac Nausea and Verified 04/11/21 14:01 Vomiting Review of Systems Review of Systems: A 10 system review of systems was completed on the patient and is negative except for what is stated in the HPI. Nursing and ancillary documentation was reviewed. [facility] Past Medical History Medical History Genitourinary disorder Autoimmune IgA nephropathy History of colon cancer Hypertension Hypothyroidism Surgical History Surgical History H/O: hysterectomy Social History Social History Gender identity (if verbalized by the patient): Female Exam Narrative: GENERAL: Well-appearing, well-nourished, and in no acute distress. HEAD: Normocephalic, there is a bruise present in the left temporal area. EYES: PERRLA and EOMI. ENT: Nares clear, no rhinorrhea or epistaxis. Mucous membranes moist. NECK: Supple. CHEST: Clear to auscultation. No respiratory distress. HEART: Regular rate and rhythm. No murmur heard. Normal peripheral pulses. ABDOMEN: Soft, nontender, nondistended, normal active bowel sounds. EXTREMITIES: There is bruising present to bilateral lower extremities there are abrasions present on the knees SKIN: Warm, dry, no rash. NEURO: No focal deficits. Alert and oriented x3. Very slow to respond PSYCH: Normal mood and affect. Course Vital Signs Vital signs: Vital Signs Temperature 37.1 C 07/13/21 19:24 Pulse Rate 103 H 07/13/21 19:24 Respiratory Rate 18 07/13/21 19:24 Blood Pressure 119/72 07/13/21 19:24 Pulse Oximetry 99 07/13/21 19:24 Temperature 37.1 C 07/13/21 19:24 Pulse Rate 92 07/13/21 22:37 Respiratory Rate 20 07/13/21 22:37 Blood Pressure 130/79 07/13/21 22:37 Pulse Oximetry 100 07/13/21 22:37 Transfer Transfered to: [facility] Transfer rationale: Continuation of care by her oncology providers Accepting physician: Mark/mohsen Medical Decision Making Vital Signs
[2021-07-13 20:58] LABS: Hematocrit 26.5 % (37.0-47.0); Hemoglobin 8.3 g/dL (12.0-15.0); Immature Platelet Fraction Pct 5.7 % (0.9-11.2); Mean Corpuscular HGB Conc 31.3 g/dl (32-36); Mean Corpuscular Hemoglobin 28.3 pg (26-34); Mean Corpuscular Volume 90.4 fl (80-100); Mean Platelet Volume 11.3 fl (7.4-10.4); Platelet Count Result 51 k/mm3 (150-375); Red Blood Count 2.93 M/mm3 (4.2-5.4); Red Cell Distribution Width 24.2 % (11.5-14.5)
[2021-07-13 20:59] LABS: INR 1.4; Partial Thromboplastin Time 32.6 SECONDS (22.3-36.8); Prothrombin Time 17.2 Seconds (11.1-14.7)
[2021-07-13 21:01] LABS: Alanine Aminotransferase 35 U/L (4-35); Albumin Level 3.1 g/dL (3.5-5.1); Alkaline Phosphatase 184 U/L (38-126); Anion Gap 11 mmol/L (8-16); Aspartate Amino Transferase 23 U/L (14-36); Bilirubin,Total 1.2 mg/dL (0.2-1.3); Blood Urea Nitrogen 35 mg/dL (7-17); Calcium 8.6 mg/dL (8.4-10.2); Carbon Dioxide 20 mmol/L (22-30); Chloride 103 mmol/L (98-107); Estimated CRCL calculation 62 ml/min; Estimated Glomerular Filt Rate 58; Glucose 152 mg/dL (65-110); Magnesium 2.1 mg/dL (1.6-2.3); Potassium 3.1 mmol/L (3.4-5.0); Sodium 134 mmol/L (137-145)
[2021-07-13 21:02] LABS: Lactic Acid Reflex 0.9 mmol/L (0.7-2.1)
[2021-07-13 21:04] LABS: Ammonia < 9 umol/L (9-30)
[2021-07-13 21:14] LABS: Troponin I 0.063 ng/mL (0.000-0.034)
[2021-07-13 21:18] LABS: White Blood Count 1.5 K/mm3 (4.5-10.0)
[2021-07-13 21:27] LABS: Anisocytosis 1+ (NORMAL); Band Neutrophils Percent 26 % (0-6); Hypochromasia 1+ (NORMAL); Lymphocytes Absolute Manual 0.19 K/mm3 (1.1-4.5); Monocytes Absolute Manual 0.04 K/mm3 (0.1-0.90); Monocytes Percent Manual 3 % (3-9); Neutrophils Absolute Manual 1.26 K/mm3 (1.7-7.2); Neutrophils Percent Manual 58 % (46-73); Platelet Estimate Decreased (Adequate); Total Cells Counted 100
[2021-07-13 21:30] VITALS: BP 130/79; PULSE 92; RESP 22; O2SAT 100
[2021-07-13] MEDS: SODIUM CHLORIDE 0.9% IV 1,000 ML 999 ML IV CONT (21:31)
[2021-07-13 22:20] LABS: Add Urine Microscopic? YES; Appearance Urine Cloudy (Clear); Bacteria Urine 1+ /hpf; Bilirubin Urine Negative (Negative); Blood Urine 2+ (Negative); Color Urine Yellow (Yellow); Glucose Urine UA Negative (Negative); Ketones Urine Negative (Negative); Leukocyte Esterase Ur Negative LEU/UL (Negative); Mucus Urine Rare /lpf; Nitrate Urine Positive (Negative); Protein Urine 2+ mg/dL (Negative); RBC Urine 0-2 /hpf (0-2); Specific Grav Ur 1.015 (1.001-1.035); Squamous Epithelial Cell Urine Rare /hpf (Few); Urobilinogen Urine Negative mg/dL (<2.0); WBC Urine 0-3 /hpf
[2021-07-13 22:37] VITALS: BP 130/79; PULSE 92; RESP 20; O2SAT 100
[2021-07-13 23:06] LABS: EDCOVIDSCREEN Negative (Negative)
[2021-07-13 23:55] VITALS: BP 144/70; PULSE 90; RESP 22; O2SAT 100
[2021-07-14] VITALS (8 sets, daily range): BP systolic 114–147; BP diastolic 64–74; PULSE 83–111; RESP 20–27; O2SAT 100
[2021-07-14] MEDS: SODIUM CHLORIDE 0.9% IV 1,000 ML 150 ML IV CONT (00:20)
== END 2021-07-14 05:48 | disposition short-term general hospital (02) ==
PROVIDERS: Emergency Provider Emergency Medicine
DX: D70.9 Neutropenia, unspecified (principal); D69.6 Thrombocytopenia, unspecified; E87.6 Hypokalemia; R53.1 Weakness; Z20.822 Contact with and (suspected) exposure to COVID-19
CPT/HCPCS: 36415; 70450; 71045; 80053; 81001; 82140; 83605; 83735; 84484; 85025; 85055; 85610; 85730; 87040; 87077; 87186; 87426; 93005; 96361; 96365; 96366; 99285; C9803; J0692; J3480; J7030; J7060